=== PATIENT | male | born 1985 | race Caucasian/White ===

== ENCOUNTER 2016-09-23 15:28 | Emergency (ER) | payer MEDICAID, OTHER ==
[2016-09-23 15:38] VITALS: TEMP 98.6
--- NOTE | 2016-09-23 15:53 | C.PDOC ---
History Of Present Illness The patient, a 31 y/o male, presents to the ED for evaluation of swelling to his penis which began a few days ago. Patient notes swelling is mostly around the foreskin and reports discomfort when he attempts to retract his foreskin. Patient also reports experiencing discomfort while engaging in sexual intercourse. Patient denies taking [id number] medication for his symptoms. Patient denies fever, chills, penile discharge, dysuria, frequency. Time Seen by Provider: 09/23/16 15:50 Chief Complaint (Nursing): Male Genitourinary History Per: Patient History/Exam Limitations: no limitations Onset/Duration Of Symptoms: Days Current Symptoms Are (Timing): Still Present Associated Symptoms: denies: Fever, Chills, Urinary Symptoms (no dysuria, frequency ) Alleviating Factors: denies: OTC Meds Additional History Per: Patient Past Medical History Reviewed: Historical Data, Nursing Documentation, Vital Signs Vital Signs: Last Vital Signs Temp 98.6 F 09/23/16 15:34 Pulse 71 09/23/16 16:40 Resp 18 09/23/16 16:40 BP 124/69 09/23/16 16:40 Pulse Ox 100 09/23/16 21:46 - Medical History PMH: No Chronic Diseases Surgical History: No Surg Hx Family History: States: Unknown Family Hx - Social History Hx Tobacco Use: No Hx Alcohol Use: No (occasional) Hx Substance Use: Yes - Immunization History Hx Tetanus Toxoid Vaccination: No Hx Influenza Vaccination: No Hx Pneumococcal Vaccination: No Review Of Systems Constitutional: Negative for: Fever, Chills Genitourinary: Positive for: Other (+penile swelling and discomfort ). Negative for: Dysuria, Frequency, Penile Discharge Physical Exam - Physical Exam Appears: Non-toxic, No Acute Distress Skin: Normal Color, Warm, Dry Head: Atraumatic, Normacephalic Gastrointestinal/Abdominal: Soft, No Tenderness, No Guarding, No Rebound Back: Normal Inspection Male Genital: No Testicular Tenderness, No Testicular Swelling, No Scrotal Swelling, No Circumcised (uncircumcised), Other (+foreskin easily retracted. Mild surrouding hyperemia with no exudate. Slight swelling of foreskin ) Extremity: Normal ROM, Capillary Refill (less than 2 seconds ) Neurological/Psych: Oriented x3, Normal Speech, Normal Cognition Gait: Steady ED Course And Treatment O2 Sat by Pulse Oximetry: 100 (on RA) Pulse Ox Interpretation: Normal Medical Decision Making Medical Decision Making: Urinalysis ordered, results are unremarkable. No indication of STI May be early balanitis or secondary to trauma Plan antifungal and local care with uro f/u Disposition Counseled Patient/Family Regarding: Diagnosis, Need For Followup - Disposition Referrals: Harjeet Beebe MD [Staff Provider] - Disposition: HOME/ ROUTINE Disposition Time: 16:32 Condition: GOOD Prescriptions: Ketoconazole 2% Cr [Nizoral] 1 appl TP DAILY #1 tube Instructions: Balanitis (ED) - Clinical Impression Clinical Impression: Balanitis - Scribe Statement The provider has reviewed the documentation as recorded by the Scribe (Kaycee Cline) Provider Attestation: All medical record entries made by the Scribe were at my direction and personally dictated by me. I have reviewed the chart and agree that the record accurately reflects my personal performance of the history, physical exam, medical decision making, and the department course for this patient. I have also personally directed, reviewed, and agree with the discharge instructions and disposition.
[2016-09-23 16:13] LABS: RBC URINE 3 /hpf (0-3); URINE BILIRUBIN NEGATIVE (NEGATIVE); URINE BLOOD NEGATIVE (NEGATIVE); URINE COLOR Yellow (YELLOW); URINE GLUCOSE (UA) NORMAL (Normal); URINE KETONE NEGATIVE (NEGATIVE); URINE LEUKOCYTE ESTERASE NEG Leu/uL (Negative); URINE PROTEIN NEGATIVE (NEGATIVE); URINE UROBILINOGEN NORMAL mg/dL (0.2-1.0); WBC URINE < 1 /hpf (0-5)
[2016-09-23] MEDS ORDERED: Bacitracin 500 Units/gm Oint Foilpak UD ONE (16:38)
[2016-09-23] MEDS ORDERED: Bacitracin Ointment 30 GM TUBE TOP STA (16:38)
[2016-09-23 16:41] VITALS: BP 124/69; PULSE 71; RESP 18
[2016-09-23 20:48] VITALS: O2SAT 100
== END 2016-09-23 16:42 | disposition home or self-care (01) ==
LOC: C.ER 15:28
DX: N48.1 Balanitis (principal)

== ENCOUNTER 2017-07-15 15:06 | Emergency (ER) | payer MEDICAID, OTHER ==
[2017-07-15 16:17] VITALS: BMI 25.8
[2017-07-15 16:22] VITALS: RESP 18
[2017-07-15] MEDS ORDERED: Sodium Chloride 0.9% 1,000 ML IV ONE (16:36)
--- NOTE | 2017-07-15 17:00 | RAD ---
HISTORY: abd pain COMPARISON: Chest x-ray performed 05/24/16 TECHNIQUE: Chest PA and lateral FINDINGS: LUNGS: No focal consolidation. Please note that chest x-ray has limited sensitivity for the detection of pulmonary masses. PLEURA: No significant pleural effusion identified. No definite pneumothorax . CARDIOVASCULAR: The cardiomediastinal silhouette appears within normal limits of size. OSSEOUS STRUCTURES: No acute osseous abnormality identified. VISUALIZED UPPER ABDOMEN: Unremarkable. OTHER FINDINGS: None. IMPRESSION: No focal consolidation, significant pleural effusion, or definite pneumothorax identified.
--- NOTE | 2017-07-15 17:05 | C.PDOC ---
History Of Present Illness 32 y/o male presents to ED with complaints of body aches, productive yellow phlegm cough, vomiting, diarrhea and weakness for 2 days. Patient reports sick contacts at work and states he has taken Ibuprofen with no improvement. Patient reports no vomiting or diarrhea today and denies any other complaints at this time. Time Seen by Provider: 07/15/17 16:28 Chief Complaint (Nursing): GI Problem History Per: Patient History/Exam Limitations: no limitations Onset/Duration Of Symptoms: Days Current Symptoms Are (Timing): Still Present Past Medical History Reviewed: Historical Data, Nursing Documentation, Vital Signs Vital Signs: Last Vital Signs Temp 99.9 F H 07/15/17 16:18 Pulse 95 H 07/15/17 16:18 Resp 18 07/15/17 16:18 BP 112/73 07/15/17 16:18 Pulse Ox 99 07/15/17 17:45 - Medical History PMH: No Chronic Diseases Surgical History: No Surg Hx Family History: States: No Known Family Hx - Social History Hx Tobacco Use: No Hx Alcohol Use: No (occasional) Hx Substance Use: Yes - Immunization History Hx Tetanus Toxoid Vaccination: No Hx Influenza Vaccination: No Hx Pneumococcal Vaccination: No Review Of Systems Constitutional: Negative for: Fever, Chills Respiratory: Positive for: Cough Gastrointestinal: Positive for: Nausea, Vomiting, Diarrhea Musculoskeletal: Positive for: Other (Body aches) Skin: Negative for: Rash Neurological: Positive for: Weakness Physical Exam - Physical Exam Appears: Non-toxic, No Acute Distress Skin: Normal Color, Warm, Dry, No Rash Head: Atraumatic, Normacephalic Eye(s): bilateral: Normal Inspection Ear(s): Bilateral: Normal Oral Mucosa: Moist Neck: Normal ROM, Supple Cardiovascular: Rhythm Regular Respiratory: Normal Breath Sounds, No Rales, No Rhonchi, No Wheezing Gastrointestinal/Abdominal: Soft, No Tenderness, No Guarding, No Rebound Extremity: Normal ROM, Capillary Refill (<2 seconds) Neurological/Psych: Oriented x3 ED Course And Treatment - Laboratory Results Result Diagrams: 07/15/17 17:06 07/15/17 17:06 O2 Sat by Pulse Oximetry: 99 (RA) Pulse Ox Interpretation: Normal Medical Decision Making Medical Decision Making: Assessment: Viral illness Progress: On re evaluation patient is feeling better, patient will be discharged with prescription and advised to follow up with PMD in 1-2 days Disposition Counseled Patient/Family Regarding: Studies Performed, Diagnosis, Need For Followup, Rx Given - Disposition Referrals: [facility] [Outside] Disposition: HOME/ ROUTINE Disposition Time: 17:43 Condition: IMPROVED Additional Instructions: follow up with medical clinic in 2 days call to make an appointment take medications as prescribed drink plenty of fluids return to ER if symptoms worsens or progress Prescriptions: Naproxen [Naprosyn] 500 mg PO BID PRN #16 tab PRN Reason: Pain, Moderate (4-7) Oseltamivir [Tamiflu] 75 mg PO BID #10 cap Instructions: Influenza (ED) Forms: [facility] (Serbian), General Discharge Instructions - Clinical Impression Clinical Impression: Influenza - Scribe Statement The provider has reviewed the documentation as recorded by the Sobiaibthalia Deleon All medical record entries made by the Sobiaibthalia were at my direction and personally dictated by me. I have reviewed the chart and agree that the record accurately reflects my personal performance of the history, physical exam, medical decision making, and the department course for this patient. I have also personally directed, reviewed, and agree with the discharge instructions and disposition.
[2017-07-15] MEDS ORDERED: Sodium Chloride 0.9% 250 ML IV ONE (17:09)
[2017-07-15 17:10] LABS: BASO # 0.1 K/uL (0.0-0.2); EOS # 0.1 K/uL (0.0-0.7); EOS % 0.5 % (0.0-4.0); HEMOGLOBIN 14.9 g/dL (12.0-18.0); LYMPH # 2.2 K/uL (1.0-4.3); LYMPH % 20.9 % (20.0-40.0); MEAN CELL VOLUME 91.7 fL (80.0-94.0); MEAN CORPUSCULAR HEMOGLOBIN 30.5 pg (27.0-31.0); MEAN CORPUSCULAR HGB CONC 33.3 g/dL (33.0-37.0); MEAN PLATELET VOLUME 9.2 fL (7.2-11.7); MONO # 2.2 K/uL (0.0-0.8); MONO % 20.4 % (0.0-10.0); NEUT % 57.2 % (50.0-75.0); NRBC % 0.3 % (0.0-2.0); PLATELET COUNT 156 K/uL (130-400); RBC 4.88 Mil/uL (4.40-5.90); RED CELL DISTRIBUTION WIDTH 13.5 % (11.5-14.5); WHITE BLOOD COUNT 10.6 K/uL (4.8-10.8)
[2017-07-15 17:20] LABS: URINE BACTERIA OCC (<OCC); URINE BILIRUBIN NEGATIVE (NEGATIVE); URINE BLOOD 2+ (NEGATIVE); URINE CLARITY Clear (Clear); URINE COLOR Yellow (YELLOW); URINE GLUCOSE (UA) NORMAL (Normal); URINE LEUKOCYTE ESTERASE NEG Leu/uL (Negative); URINE NITRATE NEGATIVE (NEGATIVE); URINE PROTEIN NEGATIVE (NEGATIVE); URINE UROBILINOGEN NORMAL mg/dL (0.2-1.0)
[2017-07-15 17:23] LABS: ALB/GLOB RATIO 1.3 (1.0-2.1); ALBUMIN 3.9 g/dL (3.5-5.0); ALT/SGPT 30 U/L (21-72); AST/SGOT 26 U/L (17-59); BLOOD UREA NITROGEN 9 mg/dL (9-20); GFR AFRICAN-AMERICAN > 60; GFR NON-AFRICAN AMERICAN > 60; LIPASE 173 U/L (23-300)
[2017-07-15 17:36] LABS: BANDS 3 % (0-2); EOSINOPHIL 1 % (0-4); LYMPHOCYTE 18 % (20-40); MONOCYTE 19 % (0-10); NEUTROPHIL 59 % (50-75); PLATELET ESTIMATE NORMAL (NORMAL); TOTAL CELLS COUNTED 100
[2017-07-15 19:02] VITALS: BP 114/73; PULSE 76; TEMP 99.2
[2017-07-16 17:03] VITALS: O2SAT 99
== END 2017-07-15 19:02 | disposition home or self-care (01) ==
LOC: C.ER 15:06
DX: J11.1 Influenza due to unidentified influenza virus with other respiratory manifestations (principal)
CPT/HCPCS: 71046; 80053; 81001; 83690; 85025; 87804; 96361; 96374; 96375; 99285; J1885; J2405; J7040